=== PATIENT | female | born 1965 | race Caucasian/White ===

== ENCOUNTER → 2023-10-06 13:11 | Outpatient (REF) | payer OTHER, SELFPAY | LOC: WDC 13:11 | PROVIDERS: ATTENDING PHYSICIAN Nurse Practitioner Family; FAMILY PHYSICIAN Emergency Medicine | DX: Z12.31 Encounter for screening mammogram for malignant neoplasm of breast (principal) | CPT/HCPCS: 77063; 77067 ==

== ENCOUNTER 2024-11-27 14:16 | Emergency (ER) | payer OTHER, SELFPAY ==
[2024-11-27] VITALS (7 sets, daily range): BP systolic 110–158; BP diastolic 66–103; BMI 23.8
[2024-11-27 14:46] LABS: Hematocrit 42.2 % (37.0-47.0); Hemoglobin 15.0 g/dL (12.0-16.0); Mean Corp Hgb Conc. 35.5 g/dL (33.0-37.0); Mean Corpuscular Volume 88.1 fL (81.0-99.0); Nucleated Red Blood Cells % 0 %; Platelet Count 167 10^3/uL (130-400); Red Cell Dist. Width 11.8 % (11.5-14.5)
[2024-11-27] MEDS: ZOFRAN 4 MG IV ×2 (15:01→16:36)
[2024-11-27 15:10] LABS: ALT (SGPT) 17 U/L (0-35); AST (SGOT) 20 U/L (14-36); Albumin 5.0 g/dl (3.5-5.0); Alkaline Phosphatase 67 U/L (38-126); Blood Urea Nitrogen 14 mg/dl (7-17); Calcium 9.9 mg/dl (8.4-10.2); Carbon Dioxide 21 mmol/L (22-30); Chloride 107 mmol/L (98-107); Estimated Creatinine Clearance 69 ml/min; Glucose 137 mg/dl (70-99); Lipase 162 U/L (23-300); Potassium 3.6 mmol/L (3.5-5.1); Sodium 139 mmol/L (135-145); Total Protein 7.4 g/dl (6.3-8.2); eGFR > 60.00
--- NOTE | 2024-11-27 15:32 | ED.GENMED ---
History of Present Illness
<Iglesia Razo MD, Resident - Last Filed: 11/27/24 19:51>
General
Chief Complaint: Abdominal Symptoms
Source: patient and family
Exam Limitations: none
Time Seen by Provider: 11/27/24 15:16
Nursing documentation reviewed up to this point in time: agreed with
History of Present Illness
History of Present Illness:
This is a 59-year-old female with no significant past medical history, history of cholecystectomy, currently not on any medications presenting in the emergency department with concerns of upper abdominal pain. She reported that she was in her usual
state of health when she developed the sudden abdominal pain around 10:30 AM today. Denies any fevers or chills. She also experienced 3 episodes of vomiting with mild ongoing nausea. Denies any diarrhea or constipation. Reports the pain is sharp
in nature and 7/10. Unsure of any aggravating factors. Pain gets slightly better after vomiting. Denies any recent NSAID use. Denies any sick contacts, recent sickness, recent travel. Denies any chest pain, trouble breathing, headache, weakness
or any visual changes.
Past History
<Iglesia Razo MD, Resident - Last Filed: 11/27/24 19:51>
Past History
ED Past Medical History: Other (Gallstone)
ED Past Surgical History: Cholecystectomy
Patient has exhibited threatening behavior?: No
Social History
Tobacco: Non-smoker
Alcohol: None
Drug: None
Personal:
Living: with family
Family History
Family History: Diabetes
Review of Systems
<Iglesia Razo MD, Resident - Last Filed: 11/27/24 19:51>
Review of Systems
Allergies reviewed?: Yes
Constitutional: Denies fever or chills
EENT: Denies sore throat
Respiratory: Denies cough
Cardiac: Denies chest pain
ABD/GI: Reports abdominal pain (Epigastric), nausea and vomiting; Denies diarrhea
: Denies dysuria or frequency
Musculoskeletal: Denies joint pain, joint swelling or muscle stiffness
Skin: Denies itching
Neurological: Denies dizzy or headache
Endocrine: Denies polyuria
Hematologic/Lymphatic: Denies bleeding
Phy Exam
<Iglesia Razo MD, Resident - Last Filed: 11/27/24 19:51>
General Physical Exam
General Presentation: mild distress
General age: appears stated age
General Skin: warm
General Habitus: normal
General Mental: alert
General Hydration: appears well hydrated
Cardiovascular Exam
Cardiovascular Exam: regular rate/rhythm and no murmur
Pulmonary Exam
Pulmonary Exam: lungs clear, no crackles and no cough
Gastrointestinal Exam
Gastrointestinal Exam: soft, non distended and tender (Epigastric)
Neurological Exam
Neurological Exam: alert and oriented x3
Course
<Iglesia Razo MD, Resident - Last Filed: 11/27/24 19:51>
Orders/Labs/Results
Orders:
Orders
11/27/24 14:22
Electrocardiogram (*1) Urgent
Reason for Study: Other
Other Reason for Exam: epigastric abd pain
11/27/24 14:23
EKG- Treatment ONCE
11/27/24 14:32
Complete Blood Count/With Diff Urgent
Comprehensive Metabolic Panel Urgent
Lipase Urgent
11/27/24 14:59
Ondansetron Injectable [Zofran] 4 mg .ROUTE .STK-MED ONE
11/27/24 15:01
Ondansetron Injectable [Zofran] 4 mg IV NOW STA
11/27/24 15:30
Ketorolac [Toradol] 15 mg IV NOW STA
11/27/24 15:52
Add On- LAB Urgent
Tests Added?: troponin
CT Abd/pelvis W Iv Cont Urgent
Comment:
Reason For Exam: abdominal pain
11/27/24 16:16
Troponin I Urgent
Comment: CANNOT BE ADDED
11/27/24 16:33
Ondansetron Injectable [Zofran] 4 mg IV NOW STA
11/27/24 16:39
HYDROmorphone [Dilaudid] 0.5 mg IV NOW STA
11/27/24 17:21
Urinalysis Reflex To Culture Urgent
Date Specimen was Collected: 11/27/24
Time Specimen was Collected: 17:18
Urine Microscopic Reflex Cult Urgent
Abnormal Lab Results
11/27/24 11/27/24
14:32 17:21
MCH 31.3 H pg
(27.0-31.0)
MPV 10.9 H fL
(7.4-10.4)
Absolute Neuts (auto) 6.6 H 10^3/uL
(1.4-6.5)
Absolute Lymphs (auto) 1.1 L 10^3/uL
(1.2-3.4)
Neutrophils % 82.3 H %
(42.2-75.2)
Lymphocytes % 13.8 L %
(20.5-51.1)
Carbon Dioxide 21 L mmol/L
(22-30)
Glucose 137 H mg/dl
(70-99)
Urine Ketones 3+ A
(Negative)
Urine Bacteria (Reflex) Few A
(Negative)
Urine Albumin (Reflex) 1+ A
(Neg - Trace)
11/27/24 14:32
11/27/24 14:32
Vital Signs
Initial and Last Documented VS:
Initial Vital Signs
Temp Pulse Resp BP Pulse Ox
97.4 F 57 22 151/83 99
11/27/24 14:19 11/27/24 14:19 11/27/24 14:19 11/27/24 14:19 11/27/24 14:19
Last Documented Vital Signs
Temp Pulse Resp BP Pulse Ox
97.4 F 57 18 110/66 98
11/27/24 14:19 11/27/24 18:45 11/27/24 18:45 11/27/24 18:07 11/27/24 18:45
<Casey Camarillo, DO - Last Filed: 11/27/24 16:31>
Orders/Labs/Results
Orders:
Orders
11/27/24 14:22
Electrocardiogram (*1) Urgent
Reason for Study: Other
Other Reason for Exam: epigastric abd pain
11/27/24 14:23
EKG- Treatment ONCE
11/27/24 14:32
Complete Blood Count/With Diff Urgent
Comprehensive Metabolic Panel Urgent
Lipase Urgent
11/27/24 14:59
Ondansetron Injectable [Zofran] 4 mg .ROUTE .STK-MED ONE
11/27/24 15:01
Ondansetron Injectable [Zofran] 4 mg IV NOW STA
11/27/24 15:30
Ketorolac [Toradol] 15 mg IV NOW STA
11/27/24 15:52
Add On- LAB Urgent
Tests Added?: troponin
CT Abd/pelvis W Iv Cont Urgent
Comment:
Reason For Exam: abdominal pain
11/27/24 16:16
Troponin I Urgent
Comment: CANNOT BE ADDED
11/27/24 16:33
Ondansetron Injectable [Zofran] 4 mg IV NOW STA
11/27/24 16:39
HYDROmorphone [Dilaudid] 0.5 mg IV NOW STA
11/27/24 17:21
Urinalysis Reflex To Culture Urgent
Date Specimen was Collected: 11/27/24
Time Specimen was Collected: 17:18
Urine Microscopic Reflex Cult Urgent
Abnormal Lab Results
11/27/24 11/27/24
14:32 17:21
MCH 31.3 H pg
(27.0-31.0)
MPV 10.9 H fL
(7.4-10.4)
Absolute Neuts (auto) 6.6 H 10^3/uL
(1.4-6.5)
Absolute Lymphs (auto) 1.1 L 10^3/uL
(1.2-3.4)
Neutrophils % 82.3 H %
(42.2-75.2)
Lymphocytes % 13.8 L %
(20.5-51.1)
Carbon Dioxide 21 L mmol/L
(22-30)
Glucose 137 H mg/dl
(70-99)
Urine Ketones 3+ A
(Negative)
Urine Bacteria (Reflex) Few A
(Negative)
Urine Albumin (Reflex) 1+ A
(Neg - Trace)
11/27/24 14:32
11/27/24 14:32
Vital Signs
Initial and Last Documented VS:
Initial Vital Signs
Temp Pulse Resp BP Pulse Ox
97.4 F 57 22 151/83 99
11/27/24 14:19 11/27/24 14:19 11/27/24 14:19 11/27/24 14:19 11/27/24 14:19
Last Documented Vital Signs
Temp Pulse Resp BP Pulse Ox
97.4 F 57 18 110/66 98
11/27/24 14:19 11/27/24 18:45 11/27/24 18:45 11/27/24 18:07 11/27/24 18:45
<Iglesia Razo MD, Resident - Last Filed: 11/27/24 19:51>
MDM/Problems Addressed
Differential Diagnosis Includes:
Gastritis vs PUD vs pancreatitis vs GERD vs less likely cardiac vs less likely renal
MDM/Problems Addressed:
Initial blood work: CBC with normal white cell count and hemoglobin.
CMP with slight increase in blood glucose to 137.
Lipase within normal limits
EKG with sinus bradycardia with short VA
1 dose of Zofran 4 mg for nausea
1 dose of IV Toradol 15 mg for ongoing pain
Will check serum troponin, CT abdomen with IV contrast
update : trop undetectable.
will give dilaudid 0.5mg iv given significant ongoing abdominal pain
update : patient refused dilaudid. will await ct; states pain is tolerable.
UA unremarkable.
update:
CT findings are questionable for a mild enteritis. No other acute process in the abdomen or pelvis.
Shared decision was made with the patient for discharge home. Sent a prescription of Bentyl and Zofran to be used as needed for pain and nausea. Return precautions reviewed. Patient agree with the plan advised to follow-up with outpatient family
doctor as well
<Iglesia Razo MD, Resident - Last Filed: 11/27/24 19:51>
*Pulse Oximetry
SaO2: 100
Patient hypoxic: no
*Critical Care Note
Total Time (30-74mins, 75-104mins- exclusive of procedures): Not Applicable
ED Attending Note
<Iglesia Razo MD, Resident - Last Filed: 11/27/24 19:51>
-
Portions of this chart may have been created with voice recognition software.� Occasional wrong word or��sound alike� substitutions may have occurred due to the inherent limitations of voice recognition software.
<Casey Camarillo, DO - Last Filed: 11/27/24 16:31>
ED Attending Note
Patient seen and examined by attending physician: Yes
I performed a history and physical exam of patient and discussed management with resident, I reviewed resident's note and agree with documented findings and plan of care.: Yes
ED Attending Note:
Seen with resident examined dependently agree with assessment and plan 59-year-old female status post gallbladder removal mid upper abdominal pain improved with Toradol then returned, EKG noted labs noted troponin pending imaging pending
Discharge Plan
Departure
Patient Disposition: Home (Routine Discharge)
Date of Disposition: 11/27/24
Time of Disposition: 19:50
Patient with high blood pressure during this ER visit?: Yes
Condition: Fair
Discharge Problem:
Gastroenteritis
Instructions: Viral gastroenteritis in adults
Prescriptions:
New
dicyclomine 10 mg capsule
10 mg PO BID Qty: 10 0RF
ondansetron 4 mg tablet,disintegrating
4 mg PO Q8H PRN (Reason: nausea and vomiting) Qty: 14 0RF
No Action
No Meds [No Current Medications]
Referrals:
Blaire Hankins MD [Family Provider, Internal Medicine] - Follow up in 1 week
Activity Restrictions/Additional Instructions:
You were seen at the [facility] emergency department with concerns of abdominal pain. While you are in the hospital we performed blood work including a complete blood count which showed normal white cell count and hemoglobin. Complete
metabolic panel which showed slight increase in blood glucose. Serum lipase which was within normal limits. EKG with sinus bradycardia otherwise normal. You received IV Toradol for pain and IV Zofran for nausea during your stay in the heart. We
also checked your serum troponin to rule out any cardiac sources and came back negative. Urinalysis was also unremarkable. CT abdomen pelvis findings are questionable for mild enteritis. No other acute process in abdominal pelvis.
We encourage to drink fluids. Eat when you can. You can use Zofran which were sent to the pharmacy for nausea as needed. A prescription for Bentyl was also sent to the pharmacy which you can utilize for abdominal pain. You can also take Tylenol
or ibuprofen for pain as needed. If you develop any new symptoms or worrisome symptoms please return to the emergency department.
Interventions
Interventions:
*Risk Screen - Suicide Last Done: 11/27/24 14:19
*General Assessment Last Done: 11/27/24 14:19
*Neglect/Abuse Screening Last Done: 11/27/24 14:19
*ED- Fall Risk Assessment Last Done: 11/27/24 18:41
*ED COVID-19 Vaccine History Last Done: 11/27/24 18:41
LJ-Alpxkf-Javgyqzoup Assessment Last Done: 11/27/24 15:04
Discharge Date and Time
Print Language: AUSTRIAN
[2024-11-27] MEDS: TORADOL 15 MG IV (15:45)
[2024-11-27 16:48] LABS: Troponin I < 0.012 ng/ml
[2024-11-27 17:40] LABS: Urine Character Clear (Clear)
[2024-11-27 17:51] LABS: Urine Squamous Cell 0-2 /LPF (Few)
[2024-11-27 17:52] LABS: Urine Red Blood Cell 0-2 /HPF (0-2); Urine White Cell 0-2 /HPF (0-5)
== END 2024-11-27 20:02 | disposition home or self-care (01) ==
LOC: EMR 14:16
PROVIDERS: EMERGENCY PHYSICIAN Emergency Medicine; FAMILY PHYSICIAN Emergency Medicine
DX: R10.10 Upper abdominal pain, unspecified (principal); K52.9 Noninfective gastroenteritis and colitis, unspecified
CPT/HCPCS: 99285; 96374; 96375; 96376; 74177; 80053; 81003; 81015; 83690; 84484; 85025; 93005; Q9967